=== PATIENT | male | born 2005 | race Hispanic/Latino ===

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

== ENCOUNTER 2024-05-20 23:29 | Emergency (ER) | payer BC, MEDICAID ==
[~2024-05-20] VITALS: Ht 167.6 cm; Wt 93.9 kg
[~2024-05-20 23:29] MED LIST changes: +POLY17PO4 PO
[2024-05-20] MEDS ORDERED: CEPH500B PO (23:50)
[2024-05-21 00:04] VITALS: BP 124/80; PULSE 66; RESP 20; TEMP 98.6; O2SAT 100
[2024-05-21] MEDS: acetaMINOPHEN 500 MG TABLET PO STA (00:11)
== END 2024-05-21 00:14 | disposition home or self-care (01) ==
LOC: EDH 23:29
DX: L73.9 Follicular disorder, unspecified (principal); J45.909 Unspecified asthma, uncomplicated

== ENCOUNTER 2024-10-10 21:03 | Emergency (ER) | payer BC ==
[~2024-10-10] VITALS: Ht 167.6 cm; Wt 96.2 kg
[~2024-10-10 21:03] MED LIST changes: +ALBU2SYR27 PO; -ALBU2SYR3 PO; +CEPH500B PO
[2024-10-10 21:45] LABS: APPEARANCE,URINE CLEAR (CLEAR); BILIRUBIN,URINE NEGATIVE (NEGATIVE); COLOR,URINE YELLOW (YELLOW); GLUCOSE, URINE (UA) NEGATIVE (NEGATIVE); KETONES,URINE NEGATIVE (NEGATIVE); LEUKOCYTE ESTERASE ,URINE NEGATIVE Leu/uL (NEGATIVE); NITRATE,URINE NEGATIVE (NEGATIVE); OCCULT BLOOD,URINE NEGATIVE (NEGATIVE); PH,URINE 6.5 (5.0-8.0); PROTEIN,URINE NEGATIVE (NEGATIVE)
[2024-10-10 21:47] LABS: ADD UA MICROSCOPIC NO
--- NOTE | 2024-10-10 22:52 | ERN ---
ED Note History of Present Illness Stated Complaint: C/O RT TESTICULAR PAIN ONSET TODAY Chief Complaint: Testicular Injury/Pain Time Seen by MD: 21:20 Time Seen by Midlevel: 21:20 Dictation: The patient is a 18-year-old male with no past medical history who presents to the emergency department with complaints of right testicular pain after lifting some boxes onset 2 hours prior to arrival. Patient denies any discharge, fevers, nausea or vomiting. Reports only one sexual partner. Allergies: Coded Allergies: No Known Allergies (Unverified Allergy, Unknown, 01/17/23) Home Meds Active Scripts Cephalexin Monohydrate (Keflex) 500 Mg Cap, 500 MG PO QID for 7 Days, #28 CAP Prov:CHANDA VAUGHAN MANAGER MANAGED CARE 05/20/24 Polyethylene Glycol 3350 (Miralax) 17 Gram Powd.pack, 17 GM PO BID for constipation, #60 PACKET 2 Refills Prov:KRISTIN FRANCISCO Sr., MD 08/18/23 Ibuprofen (Ibuprofen) 600 Mg Tablet, 600 MG PO Q6H PRN for PAIN, #30 TAB Prov:SUZIE BIRD V OVERNIGHT HOUSEPERSON 04/24/23 Famotidine (Famotidine) 20 Mg Tablet, 20 MG PO BID for 7 Days, #14 TAB Prov:VERONIQUE ZAMBRANO MANAGER MANAGED CARE 01/17/23 Albuterol Sulfate (Albuterol Sulfate) 2 Mg/5 Ml Syrup, 2 MG PO TID for 5 Days, #75 ML Prov:VERONIQUE ZAMBRANO MANAGER MANAGED CARE 01/17/23 Past Medical History Past Medical History: Asthma Surgical History: None Surgical History Other: BILATERAL EYE RN Note Reviewed/Agreed w/PFSH: Yes Review of System Dictation Constitutional: Negative for fever,chills, and weight loss Eyes: Negative for injury, pain,redness, and discharge ENT: Negative for injury,pain or swelling Cardiovascular: Negative for chest pain, palpitations, and edema Respiratory: Negative for shortness of breath, cough, and wheezing, Abdomen/GI: Negative for abdominal pain, nausea, vomiting, diarrhea, and constipation Back: Negative for injury and pain : Negative for injury, bleeding and discharge positive for right testicular pain MS/Extremity: Negative for injury and deformity Skin: Negative for rash, and discoloration Neuro: Negative for headache, weakness, numbness, tingling, and seizure Psych: Negative for suicide ideation, homicidal ideation, and hallucinations Initial Vital Sign VS Vital Signs Date Time Temp Pulse Resp B/P (MAP) Pulse Ox O2 Delivery O2 Flow Rate FiO2 10/10/24 21:04 99.0 105 24 133/84 96 Room Air 10/10/24 21:31 0 21 Physical Exam Dictation Vital Signs reviewed General Appearance: Alert, oriented x 3, no acute distress, well developed, nourished. Head and Face: non-traumatic. Eyes: PERRL, pink conjunctivas, eyelid no trauma, anterior chamber with arcus senilis. Ears: Pinnas intact and no signs of trauma or erythema ear canals clear and no discharge TM no erythema Nose: No discharge, no bleeding. Oropharynx: Mouth normal, tongue pink. pharynx clear,no erythema, tonsils no exudates, no abscesses noted, mucous membrane moist Neck: Supple, non-tender, no thyromegaly, no masses, no JVD, no bruits Breast:Deferred Chest:No tenderness, no crepitus, no paradoxical movement, no retractions Lungs:Clear, well-ventilated, symmetric, no rales, no wheezing, no rhonchi, no stridor, good breath sounds bilaterally Heart: Regular rate, regular rhythm, no murmur, no gallops Vascular: no peripheral edema, Abdomen: Soft, positive bowel sounds, nondistended, no guarding, nontender, no rebound, no masses no hepatomegaly, no splenomegaly, no Reyes's sign, no hernias. Rectal: Deferred Genital: No testicular swelling, erythema, drainage, nodules, open wounds Neurological: Normal speech, motor function intact, sensory function intact Musculoskeletal: Neck nontender, full range of motion, back nontender, full range of motion, Extremities: nontender, full range of motion Skin: Color pink, dry, no turgor, no rash, no lacerations, no abrasions, no contusions. Lymphatic: Deferred Results (Laboratory/Radiology) Laboratory/Radiology Laboratory Tests Test 10/10/24 21:18 Urine Color YELLOW (YELLOW) Urine Appearance CLEAR (CLEAR) Urine pH 6.5 (5.0-8.0) Urine Specific [place] 1.029 (1.001-1.031) Urine Protein NEGATIVE mg/dL (NEGATIVE) Urine Glucose (UA) NEGATIVE mg/dL (NEGATIVE) Urine Ketones NEGATIVE mg/dL (NEGATIVE) Urine Occult Blood NEGATIVE (NEGATIVE) Urine Nitrate NEGATIVE (NEGATIVE) Urine Bilirubin NEGATIVE mg/dL (NEGATIVE) Urine Urobilinogen 2.0 mg/dL (0.2-1.0) H Urine Leukocyte Esterase NEGATIVE Yennifer/uL Labs Reviewed?: Yes ED Course ED Course Orders Procedure Category Date Status Time Urinalysis Profile LAB 10/10/24 Complete 21:23 Us Scrotum & Contents US 10/10/24 Taken 21:23 Ketorolac 60mg/2ml PHA 10/10/24 In Process (Toradol 60mg/2ml) 23:00 Current Medications Medications (Trade) Dose Ordered Sig/Darren Route PRN Reason Start Time Stop Time Status Last Admin Dose Admin Ketorolac Tromethamine (toRADol 60MG/ 2ML) 60 mg ONCE ONCE IM 10/10/24 23:00 10/10/24 23:01 10/10/24 22:53 Vital Signs Date Time Temp Pulse Resp B/P (MAP) Pulse Ox O2 Delivery O2 Flow Rate FiO2 10/10/24 22:53 98.4 74 20 132/80 100 Room Air* 0 21 10/10/24 21:31 98.6 66 20 124/78 100 Room Air* 0 21 10/10/24 21:04 99.0 105 24 133/84 96 Room Air Medical Decision Making MDM The patient is a 18-year-old male with no past medical history who presents to the emergency department with complaints of right testicular pain after lifting some boxes onset 2 hours prior to arrival. Patient denies any discharge, fevers, nausea or vomiting. Reports only one sexual partner. Ultrasound revealed no acute pathology, no testicular torsion. On physical exam patient has no edema, no open wounds, no discharge. Patient will be discharged to follow up with PCP. Patient in no acute distress, nontoxic appearance. Differential diagnosis: Testicular torsion, epididymitis, UTI Need for hospitalization: Patient does not meet criteria for hospitalization. There are no social concerns with this patient. DX & DISP Disposition: Discharge Departure Impression: Primary Impression: Testicular pain, right Additional Impression: Muscle strain Condition: Stable Scripts Ibuprofen (Ibuprofen) 600 Mg Tablet 600 MG PO Q6H PRN for PAIN, #10 TAB Prov: FERNANDEZ CROWDER OVERNIGHT HOUSEPERSON 10/10/24 Additional Instructions: FOLLOW-UP WITH PRIMARY CARE PROVIDER IN 1 TO 2 DAYS. TAKE MEDICATIONS DIRECTED HERE IN THE EMERGENCY ROOM. OKAY TO CONTINUE HOME MEDICATIONS UNLESS OTHERWISE DISCUSSED DURING YOUR VISIT IN THE EMERGENCY ROOM TODAY. RETURN TO YOUR NEAREST EMERGENCY ROOM IF SYMPTOMS WORSEN OR IF THERE IS NO IMPROVEMENT. CALL 911 IF YOU NEED IMMEDIATE ASSISTANCE. TAKE TYLENOL OR MOTRIN [id number] NEEDED AND IF NO CONTRAINDICATIONS ARE PRESENT. INCREASE ORAL HYDRATION. A WOUND CULTURE OR URINE CULTURE WAS ORDERED HERE IN THE EMERGENCY ROOM DEPARTMENT PLEASE FOLLOW-UP WITH PRIMARY CARE PROVIDER AND ADVISE THEM TO GET REPEAT PORTS FROM OUR FACILITY. IF YOU HAD ANY HOWARD WRAP/SPLINTS THAT WERE APPLIED HERE, PLEASE DO NOT REMOVE THEM UNTIL YOU SEE YOUR PRIMARY CARE OR SPECIALTY. Referrals: PANTERA SANTOS MD (PCP) Time of Disposition: 22:56 I have reviewed the case, and I agree with, Diagnosis and Plan FERNANDEZ CROWDER Oct 10, 2024 22:52
[2024-10-10 22:53] VITALS: BP 132/80; PULSE 74; RESP 20; TEMP 98.4; O2SAT 100
[2024-10-10] MEDS: ketOROlac 60 MG VIAL (30MG/ML) IM ONE (22:53)
[2024-10-10] MEDS ORDERED: IBUP-2070 PO (22:56)
--- NOTE | 2024-10-10 23:53 | HMCIMG ---
US SCROTUM & CONTENTS HISTORY: Right scrotal pain COMPARISON: None TECHNIQUE: Duplex scrotal ultrasound study was performed. FINDINGS: The right testes measures 4.4 x 2.8 x 2.4 cm. The left testes measures 4.5 x 2.9 x 2.5 cm. No evidence of intratesticular mass or abnormal calcification is seen. Normal flow is demonstrated in the testes and epididymides bilaterally. No hydroceles or varicocele is seen. IMPRESSION: 1. No evidence of intratesticular mass is seen. 2. Normal flow is demonstrated of both testes.
== END 2024-10-10 23:01 | disposition home or self-care (01) ==
LOC: EDH 21:03
DX: N50.811 Right testicular pain (principal); T14.8XXA Other injury of unspecified body region, initial encounter; J45.909 Unspecified asthma, uncomplicated; Z79.899 Other long term (current) drug therapy; X50.0XXA Overexertion from strenuous movement or load, initial encounter; Y93.89 Activity, other specified; Y92.89 Other specified places as the place of occurrence of the external cause; Y99.8 Other external cause status
CPT/HCPCS: 99284; 96374; 81003; 76870; J1885

== ENCOUNTER 2025-02-18 19:29 | Emergency (ER) | payer BC ==
[~2025-02-18] VITALS: Ht 167.6 cm; Wt 97.5 kg
[~2025-02-18 19:29] MED LIST changes: +FAMO-136 PO; +ONDA-243 PO
--- NOTE | 2025-02-18 19:34 | NUR ---
UA CUP PROVIDED
[2025-02-18 21:45] LABS: IMMATURE GRANULOCYTE ABSOLUTE 0.02 K/uL (0-1); NUCLEATED RED BLOOD CELLS 0.0 % (0.0-0.19); PLATELET COUNT (AUTO) 201 K/uL (130-400); RED BLOOD CELL COUNT(AUTO) 5.10 MIL/uL (4.50-6.20); RED CELL DISTRIBUTION WIDTH 12.9 % (11.0-15.5); WHITE BLOOD COUNT (AUTO) 7.7 K/uL (4.8-10.8)
[2025-02-18 21:54] LABS: CREATININE 1.0 mg/dL (0.5-1.3); GLOMERULAR FILTR. RATE CALC 111.0 mL/min (>90); GLUCOSE,RANDOM 101.0 mg/dL (70-105); SODIUM SERUM 144.0 mmol/L (136-145); UREA NITROGEN, BLOOD 14.0 mg/dL (7-18)
--- NOTE | 2025-02-18 22:11 | ERN ---
General Chief Complaint: Multiple Complaints Stated Complaint: HEADACHE, HTN, " BALL" BEHIND EAR Time Seen by MD: 19:40 Time Seen by Midlevel: 19:40 Source: patient History of Present Illness Initial Comments The patient is a 19-year-old male presenting to the emergency department with multiple nonspecific complaints. She reports a frontal headache that has been intermittent in nature over the last week. He also reports a nodule like structure behind his left ear. He was seen at a local urgent care several days ago and was started on oral antibiotics for empiric treatment. At that time they had told him with a nodule behind his left ear was an inflamed lymph node however lymph node has not decreased in size so he decided to report to the emergency department for further evaluation. Additionally the patient checked his blood pressure today and it was elevated so he decided to come to the emergency department. Allergies: Coded Allergies: No Known Allergies (Unverified Allergy, Unknown, 01/17/23) Home Meds Active Scripts Famotidine (Pepcid) 20 Mg Tablet, 1 TAB PO BID for 30 Days, #60 TAB 0 Refills Prov:CHANDA VAUGHAN PLANT PROTECTION OFFICER 11/15/24 Ondansetron (Ondansetron Odt) 4 Mg Tab.rapdis, 3 MG PO Q6HPRN PRN for nausea, #16 TAB 0 Refills Prov:CHANDA VAUGHAN PLANT PROTECTION OFFICER 11/15/24 Ibuprofen (Ibuprofen) 600 Mg Tablet, 600 MG PO Q6H PRN for PAIN, #10 TAB Prov:FERNANDEZ CROWDER WOOD BOX MAKER 10/10/24 Cephalexin Monohydrate (Keflex) 500 Mg Cap, 500 MG PO QID for 7 Days, #28 CAP Prov:CHANDA VAUGHAN PLANT PROTECTION OFFICER 05/20/24 Polyethylene Glycol 3350 (Miralax) 17 Gram Powd.pack, 17 GM PO BID for constipation, #60 PACKET 2 Refills Prov:KRISTIN FRANCISCO Sr., MD 08/18/23 Ibuprofen (Ibuprofen) 600 Mg Tablet, 600 MG PO Q6H PRN for PAIN, #30 TAB Prov:SUZIE BIRD V WOOD BOX MAKER 04/24/23 Famotidine (Famotidine) 20 Mg Tablet, 20 MG PO BID for 7 Days, #14 TAB Prov:VERONIQUE ZAMBRANO PLANT PROTECTION OFFICER 01/17/23 Albuterol Sulfate (Albuterol Sulfate) 2 Mg/5 Ml Syrup, 2 MG PO TID for 5 Days, #75 ML Prov:VERONIQUE ZAMBRANO PLANT PROTECTION OFFICER 01/17/23 Past Medical History Past Medical History: No Pertinent History Past Surgical History: Other Surgical History Other: BILATERAL EYE ROS Dictation CONSTITUTIONAL: Negative except for HPI HEAD/FACE: Negative except for HPI EENT: Negative except for HPI RESPIRATORY: Negative except for HPI GASTROINTESTINAL/ABDOMINAL: Negative except for HPI GENITOURINARY: Negative except for HPI MUSCULOSKELETAL: Negative except for HPI INTEGUMENTARY: Negative except for HPI NEUROLOGICAL/PSYCH: Negative except for HPI HEMATOLOGIC/LYMPHATIC: Negative except for HPI All Systems Negative, Except as noted above. 13 point review of systems assessed and all negative except for above. Physical Exam Physical Exam Dictation Vital Signs reviewed General Appearance: Alert, oriented x 3, no acute distress, well developed, nourished. Head and Face: non-traumatic. Eyes: PERRL, pink conjunctivas, eyelid no trauma, anterior chamber with arcus senilis. Ears: Pinnas intact and no signs of trauma or erythema ear canals clear and no discharge TM no erythema Nose: No discharge, no bleeding. Oropharynx: Mouth normal, tongue pink, pharynx clear,no erythema, tonsils no exudates, no abscesses noted, mucous membrane moist Neck: Supple, non-tender, no thyromegaly, no masses, no JVD, no bruits Breast:Deferred Chest:No tenderness, no crepitus, no paradoxical movement, no retractions Lungs:Clear, well-ventilated, symmetric, no rales, no wheezing, no rhonchi, no stridor, good breath sounds bilaterally Heart: Regular rate, regular rhythm, no murmur, no gallops Vascular: no peripheral edema, Abdomen: Soft, positive bowel sounds, nondistended, no guarding, nontender, no rebound, no masses no hepatomegaly, no splenomegaly, no Reyes's sign, no hernias. Rectal: Deferred Genital: Deferred Neurological: Normal speech, motor function intact, sensory function intact Musculoskeletal: Neck nontender, full range of motion, back nontender, full range of motion, Extremities: nontender, full range of motion Skin: Color pink, dry, no turgor, no rash, no lacerations, no abrasions, no contusions. Lymphatic: Deferred Results Laboratory and Microbiology Lab and Micro Result Laboratory Tests Test 02/18/25 21:36 White Blood Count 7.7 K/uL (4.8-10.8) Red Blood Count 5.10 MIL/uL (4.50-6.20) Hemoglobin 15.7 g/dL (14.0-18.0) Hematocrit 45.3 % (42-54) Mean Corpuscular Volume 88.8 fL (80-100) Mean Corpuscular Hemoglobin 30.8 pg (27.0-33.0) Mean Corpuscular Hemoglobin Concent 34.7 g/dL (32.0-36.0) Red Cell Distribution Width 12.9 % (11.0-15.5) Platelet Count 201 K/uL (130-400) Mean Platelet Volume 8.3 fL (7.5-10.5) Immature Granulocyte % (Auto) 0.3 % (0-1) Neutrophils (%) (Auto) 62.2 % (40.0-77.0) Lymphocytes (%) (Auto) 26.5 % (21.0-51.0) Monocytes (%) (Auto) 8.4 % (3.0-13.0) Eosinophils (%) (Auto) 2.2 % (0.0-8.0) Basophils (%) (Auto) 0.4 % (0.0-5.0) Neutrophils # (Auto) 4.8 K/uL (1.8-7.7) Lymphocytes # (Auto) 2.0 K/uL (1.0-4.8) Monocytes # (Auto) 0.7 K/uL (0.1-1.0) Eosinophils # (Auto) 0.17 K/uL (0.00-0.70) Basophils # (Auto) 0.03 K/uL (0.00-0.20) Absolute Immature Granulocyte (auto 0.02 K/uL (0-1) Nucleated Red Blood Cells 0.0 % (0.0-0.19) Sodium Level 144 mmol/L (136-145) Potassium Level 4.0 mmol/L (3.5-5.1) Chloride Level 106 mmol/L (101-111) Carbon Dioxide Level 26 mmol/L (21-32) Blood Urea Nitrogen 14 mg/dL (7-18) Creatinine 1.0 mg/dL (0.5-1.3) Glomerular Filtration Rate Calc 111 mL/min (>90) Random Glucose 101 mg/dL (70-105) Total Calcium 8.8 mg/dL (8.5-10.1) Labs Reviewed?: Yes MDM MDM: Differential diagnosis: Migraine headache, dehydration, electrolyte abnormality There are no social concerns with this patient. Prescription drug management Prescriptions will include: Non Medical management and examination interpretation discussions were had by me with other qualified healthcare professionals as indicated for the patient's care. ED Course Orders Procedure Category Date Status Time Cbc With Differential LAB 02/18/25 Complete 21:17 Basic Metabolic Panel LAB 02/18/25 Complete 21:17 Vital Signs Date Time Temp Pulse Resp B/P (MAP) Pulse Ox O2 Delivery O2 Flow Rate FiO2 02/18/25 20:00 98.2 88 19 150/77 96 Room Air* 0 21 02/18/25 19:30 98.4 91 18 153/85 99 Room Air DX & DISP Disposition: Discharge Departure Impression: Primary Impression: Headache, unspecified Condition: Stable Additional Instructions: Your blood work today is unremarkable. There are no signs of dehydration. Your kidney function is normal. Your electrolytes are normal. You may take Tylenol and Motrin as needed for your headache. You need to follow up with your primary care doctor for further evaluation. Referrals: PANTERA SANTOS MD (PCP) Time of Disposition: 22:10 I have reviewed the case, and I agree with, Diagnosis and Plan I performed the substantive portion of the visit. I have reviewed and personally made and approve the management plan that is documented in the note by myself or the LILLIE. I acknowledge for responsibility for the patient's management plan. FIORELLA GUZMÁN Feb 18, 2025 22:11
[2025-02-18 22:12] VITALS: BP 148/79; PULSE 88; RESP 19; TEMP 98; O2SAT 97
== END 2025-02-18 22:18 | disposition home or self-care (01) ==
LOC: EDH 19:29
DX: R51.9 Headache, unspecified (principal); I10 Essential (primary) hypertension; Z79.899 Other long term (current) drug therapy
CPT/HCPCS: 36415; 80048; 85025; 99283

== ENCOUNTER 2025-07-09 13:09 | Emergency (ER) | payer BC ==
[~2025-07-09] VITALS: Ht 167.6 cm; Wt 98.2 kg
[~2025-07-09 13:09] MED LIST changes: +IBUP-1492 PO; -IBUP-2070 PO
--- NOTE | 2025-07-09 13:37 | EKG ---
[facility] Test Date: 2025-07-09 Test Time: 13:20:30 Pat Name: LACEY WARD Department: ED Room: Gender: M Chef & Owner: [id number] : 2005 Requested By: CHANDA VAUGHAN Order Number: [id number] Reading MD: Sherley Kitchen Measurements Intervals [place] Rate: 59 P: 10 IN: 121 QRS: 59 QRSD: 77 T: 52 QT: 395 QTc: 392 Interpretive Statements Sinus rhythm Compared to ECG 01/17/2023 12:30:01 Sinus tachycardia no longer present Electronically Signed On 07-09-2025 13:45:50 BAND SAW OPERATOR by Sherley Kitchen Please click the below link to view image of tracing.
[2025-07-09 13:38] LABS: IMMATURE GRANULOCYTE ABSOLUTE 0.03 K/uL (0-1); NUCLEATED RED BLOOD CELLS 0.0 % (0.0-0.19); PLATELET COUNT (AUTO) 264 K/uL (130-400); RED BLOOD CELL COUNT(AUTO) 5.65 MIL/uL (4.50-6.20); RED CELL DISTRIBUTION WIDTH 12.7 % (11.0-15.5); WHITE BLOOD COUNT (AUTO) 7.1 K/uL (4.8-10.8)
[2025-07-09 13:41] LABS: CREATININE 0.9 mg/dL (0.5-1.3); GLOMERULAR FILTR. RATE CALC 125.0 mL/min (>90); GLUCOSE,RANDOM 96.0 mg/dL (70-105); SODIUM SERUM 136.0 mmol/L (136-145); UREA NITROGEN, BLOOD 9.0 mg/dL (7-18)
--- NOTE | 2025-07-09 14:14 | HMCIMG ---
EXAM: CR Chest, 1 View. CLINICAL HISTORY: cp COMPARISON: None provided. FINDINGS: LUNGS: There is no mass, infiltrate, or acute pulmonary abnormality. PLEURAL SPACES: No evidence of pleural effusion or pneumothorax. MEDIASTINUM: Cardiac size and mediastinal contours within normal limits. BONES: No acute osseous abnormality. IMPRESSION: No acute cardiopulmonary pathology is evident. /[place]
[2025-07-09] MEDS ORDERED: HYDR-3421 PO (15:22)
--- NOTE | 2025-07-09 15:22 | ERN ---
ED Note History of Present Illness Stated Complaint: MULTIPLE COMPLAINTS Chief Complaint: Multiple Complaints Time Seen by MD: 13:14 Time Seen by Midlevel: 13:15 Dictation: 19-year-old male coming in with complaints of chest pain and feeling anxious" . Patient denies any precipitating symptoms. Denies any shortness the breath, vomiting, nausea, diarrhea. Allergies: Coded Allergies: No Known Allergies (Unverified Allergy, Unknown, 01/17/23) Home Meds Active Scripts Famotidine (Pepcid) 20 Mg Tablet, 1 TAB PO BID for 30 Days, #60 TAB 0 Refills Prov:CHANDA VAUGHAN NUCLEAR PHARMACIST 11/15/24 Ondansetron (Ondansetron Odt) 4 Mg Tab.rapdis, 3 MG PO Q6HPRN PRN for nausea, #16 TAB 0 Refills Prov:CHANDA VAUGHAN NUCLEAR PHARMACIST 11/15/24 Ibuprofen (Ibuprofen) 600 Mg Tablet, 600 MG PO Q6H PRN for PAIN, #10 TAB Prov:FERNANDEZ CROWDER DENTAL BILLING SPECIALIST 10/10/24 Cephalexin Monohydrate (Keflex) 500 Mg Cap, 500 MG PO QID for 7 Days, #28 CAP Prov:CHANDA VAUGHAN NUCLEAR PHARMACIST 05/20/24 Polyethylene Glycol 3350 (Miralax) 17 Gram Powd.pack, 17 GM PO BID for constip ation, #60 PACKET 2 Refills Prov:KRISTIN FRANCISCO Sr., MD 08/18/23 Ibuprofen (Ibuprofen) 600 Mg Tablet, 600 MG PO Q6H PRN for PAIN, #30 TAB Prov:SUZIE BIRD V DENTAL BILLING SPECIALIST 04/24/23 Famotidine (Famotidine) 20 Mg Tablet, 20 MG PO BID for 7 Days, #14 TAB Prov:VERONIQUE ZAMBRANO LAMP SHADE JOINER 01/17/23 Albuterol Sulfate (Albuterol Sulfate) 2 Mg/5 Ml Syrup, 2 MG PO TID for 5 Days, #75 ML Prov:VERONIQUE ZAMBRANO LAMP SHADE JOINER 01/17/23 Past Medical History Past Medical History: GERD Surgical History: None Surgical History Other: BILATERAL EYE Review of System Dictation Constitutional: Negative for fever,chills, and weight loss Eyes: Negative for injury, pain,redness, and discharge ENT: Negative for injury,pain or swelling Cardiovascular: Negative for chest pain, palpitations, and edema Respiratory: Negative for shortness of breath, cough, and wheezing, Abdomen/GI: Negative for abdominal pain, nausea, vomiting, diarrhea, and constipation Back: Negative for injury and pain : Negative for injury, bleeding and discharge MS/Extremity: Negative for injury and deformity Skin: Negative for rash, and discoloration Neuro: Negative for headache, weakness, numbness, tingling, and seizure Psych: Negative for suicide ideation, homicidal ideation, and hallucinations Review of Systems: was completed Initial Vital Sign VS Vital Signs Date Time Temp Pulse Resp B/P (MAP) Pulse Ox O2 Delivery O2 Flow Rate FiO2 07/09/25 13:14 97.3 64 18 138/71 99 Room Air 0 Physical Exam Dictation General: awake, alert, NAD Head/Face: Normocephalic, atraumatic Eyes: PERRL, EOMI, vision at baseline ENT: oral cavity clear, TMs clear, no signs of infection Neck: Trachea midline, supple, no nuchal rigidity Cardiovascular: RRR, normal S1/S2, No MRGs, no JVD Respiratory: CTAB, no respiratory distress, No rales or wheezes Abdomen: Soft, non-tender, non-distended, normal bowel sounds, no guarding or rebound. Skin: Warm, dry, normal turgor, no rash MS/Extremity: Pulses equal, no cyanosis, neurovascular intact, FROM Neuro: COAx4, GCS 15, strength 5/5, CN 2-12 intact, normal cerebellar exam, normal gait, Psych: Normal behavior, mood, and affect normal Results (Laboratory/Radiology) Laboratory/Radiology Laboratory Tests Test 07/09/25 13:24 White Blood Count 7.1 K/uL (4.8-10.8) Red Blood Count 5.65 MIL/uL (4.50-6.20) Hemoglobin 17.3 g/dL (14.0-18.0) Hematocrit 49.0 % (42-54) Mean Corpuscular Volume 86.7 fL (80-100) Mean Corpuscular Hemoglobin 30.6 pg (27.0-33.0) Mean Corpuscular Hemoglobin Concent 35.3 g/dL (32.0-36.0) Red Cell Distribution Width 12.7 % (11.0-15.5) Platelet Count 264 K/uL (130-400) Mean Platelet Volume 8.5 fL (7.5-10.5) Immature Granulocyte % (Auto) 0.4 % (0-1) Neutrophils (%) (Auto) 62.6 % (40.0-77.0) Lymphocytes (%) (Auto) 25.7 % (21.0-51.0) Monocytes (%) (Auto) 8.1 % (3.0-13.0) Eosinophils (%) (Auto) 2.6 % (0.0-8.0) Basophils (%) (Auto) 0.6 % (0.0-5.0) Neutrophils # (Auto) 4.4 K/uL (1.8-7.7) Lymphocytes # (Auto) 1.8 K/uL (1.0-4.8) Monocytes # (Auto) 0.6 K/uL (0.1-1.0) Eosinophils # (Auto) 0.18 K/uL (0.00-0.70) Basophils # (Auto) 0.04 K/uL (0.00-0.20) Absolute Immature Granulocyte (auto 0.03 K/uL (0-1) Nucleated Red Blood Cells 0.0 % (0.0-0.19) Sodium Level 136 mmol/L (136-145) Potassium Level 3.6 mmol/L (3.5-5.1) Chloride Level 101 mmol/L (101-111) Carbon Dioxide Level 25 mmol/L (21-32) Blood Urea Nitrogen 9 mg/dL (7-18) Creatinine 0.9 mg/dL (0.5-1.3) Glomerular Filtration Rate Calc 125 mL/min (>90) Random Glucose 96 mg/dL (70-105) Total Calcium 9.1 mg/dL (8.5-10.1) Troponin I High Sensitivity 5 ng/L (4-75) EKG Comment: EKGs done at 1:20 p.m.. Sinus rhythm rate of 59. No STEMI interpreted by ER MD ED Course ED Course Orders Procedure Category Date Status Time Cbc With Differential LAB 07/09/25 Complete 13:18 Basic Metabolic Panel LAB 07/09/25 Complete 13:18 Troponin I High LAB 07/09/25 Complete Sensitivity 13:18 Drug Screen Urine LAB 07/09/25 Logged 13:18 Chest 1vw RAD 07/09/25 Resulted 13:18 12 Lead Ekg Tracing- EKG 07/09/25 Resulted Technical 13:18 Hydroxyzine 50mg Vial PHA 07/09/25 Complete (Atarax 50mg Inj) 13:18 Current Medications Medications (Trade) Dose Ordered Sig/Darren Route PRN Reason Start Time Stop Time Status Last Admin Dose Admin Hydroxyzine HCl (ATArax 50MG INJ) 25 mg ONCE STAT IM 07/09/25 13:18 07/09/25 13:23 DC 07/09/25 13:57 Vital Signs Date Time Temp Pulse Resp B/P (MAP) Pulse Ox O2 Delivery O2 Flow Rate FiO2 07/09/25 13:14 97.3 64 18 138/71 99 Room Air 0 HEART Score Response (Comments) Value History: Low suspicion (0) 0 EKG: Normal 0 Age: < 45yrs (0) 0 Risk Factors: No known risk factors (0) 0 Initial Troponin: Normal limit (0) 0 HEART Score Risk: Low Risk for MACE (1-3) Total 0 Medical Decision Making MDM MDM: 19-year-old male coming in with complaints of chest pain and feeling anxious" . Patient denies any precipitating symptoms. Denies any shortness the breath, vomiting, nausea, diarrhea. Cardiac workup is negative. EKGs shows no ST elevations or reciprocal changes. Feeling gave hydroxyzine 25 mg IM. Patient states he feels much better. We will give the patient description for hydroxyzine and told him to follow up with PCP for further evaluation for anxiety. Educated on red flag symptoms of when to return back to the ER. Differential diagnosis: Anxiety, ACS, electrolyte abnormality, Rationale: Tests considered and ordered secondary to shared decision making include: Previous outside records reviewed: Old ER visits. Risk of complication and/or morbidity or mortality of patient management: None Medications-Per medication reconciliation Need for hospitalization: Patient does not meet criteria for hospitalization. Need for emergency major/minor surgery: No There are no social concerns with this patient. Prescription drug management Prescriptions will include symptomatic care Patient's prior external medical records from other ER visits were reviewed by me as indicated. Prior testing and results from previous visits were reviewed. Prior tests were taken into account with medical decision making and resource utilization, independent historian/historians were used to obtain complete medical history. I independently interpreted the test that were performed, results were reviewed by me and considered findings on radiology if ordered. Medical management and examination interpretation discussions were had by me with other qualified healthcare professionals as indicated for the patient's care. DX & DISP Disposition: Discharge Departure Impression: Primary Impression: Anxiety Condition: Stable Scripts Hydroxyzine HCl (Hydroxyzine HCl) 25 Mg Tablet 1 TAB PO BID for anxiety for 15 Days, #30 TAB 0 Refills Prov: CHANDA VAUGHAN CNP 07/09/25 Additional Instructions: Take medication as needed and when you feel anxious. Follow up with your primary care doctor. Return to the hospital for any worsening symptoms. Referrals: PANTERA SANTOS MD (PCP) Time of Disposition: 15:20 I have reviewed the case, and I agree with, Diagnosis and Plan CHANDA VAUGHAN CNP Jul 09, 2025 15:22
[2025-07-09 15:24] VITALS: BP 125/65; PULSE 65; RESP 18; TEMP 97.9; O2SAT 99
== END 2025-07-09 15:29 | disposition home or self-care (01) ==
LOC: EDH 13:09
DX: F41.9 Anxiety disorder, unspecified (principal); Z79.899 Other long term (current) drug therapy
CPT/HCPCS: 99284; 71045; 84484; 80048; 85025; 36415; 96372; 93005; J3410